=== PATIENT | female | born 2000 | race African-American/Black ===

== ENCOUNTER 2018-03-06 08:28 | Day surgery (SDC) | payer OTHER ==
[2018-03-05 13:37] VITALS: BMI 48.4
[2018-03-06] MEDS ORDERED: Fentanyl 100 MCG/2 ML VIAL ONE (09:37)
--- NOTE | 2018-03-06 12:31 | OP ---
DATE OF PROCEDURE: 03/06/2018 PROCEDURES: Esophagogastroduodenoscopy (diagnostic), colonoscopy with biopsy. INDICATION FOR PROCEDURE: Periumbilical abdominal pain, chronic diarrhea. DESCRIPTION OF PROCEDURE: After the risks and benefits of the procedure were explained to the patien t including risks of bleeding, infection, perforation, reactions to anesthesia, aspiration and/or jarrett n, informed consent was obtained. The patient was then taken to the endoscopy suite where deep sedat ion was administered via propofol and anesthesia support. Once adequate sedation was achieved, the s tandard gastroscope was introduced into the mouth with intubation of the esophagus, stomach and the p roximal small intestine with the findings listed below. The patient tolerated this portion of the pr ocedure well with no immediate perioperative complications. After completion of this phase of the pr ocedures, all equipment was removed and the patient's bed was rotated 180 degrees in preparation for the colonoscopy. Once in adequate position, a digital rectal examination was performed. After compl etion of this, the standard colonoscope was introduced into the rectum and advanced to the terminal i leum with no difficulty. The quality of the prep was excellent. The patient tolerated the procedure well with no immediate perioperative complications. EGD FINDINGS: ESOPHAGUS: Normal appearing mucosa was seen in the proximal, mid and distal esophagus. There was no evidence of erosions, ulcerations, mass lesions or active/recent bleeding. STOMACH: Normal appearing mucosa was seen in the gastric cardia, fundus, body, antrum, greater curva ture and incisura. There was no evidence of erosions, ulcerations, mass lesions, active/recent bleed ing. DUODENUM: Normal appearing mucosa was seen in both the duodenal bulb and second portion of the duode num. There was no evidence of erosions, ulcerations, mass lesions or active/recent bleeding. IMPRESSION: 1. Normal upper endoscopy. 2. Etiology for her abdominal pain was not seen during this examination. COLONOSCOPY FINDINGS: DIGITAL RECTAL EXAM: Normal. FINDINGS: Normal appearing mucosa was seen in the terminal ileum up to 15-20 cm past the ileocecal v alve. There was no evidence of erosions, ulcerations, or mucosal erythema in this region. Normal ap pearing mucosa was also seen at the ileocecal valve and appendiceal orifice. Normal appearing mucosa was also seen in the cecum, ascending, transverse, descending, sigmoid colon and rectum. Random bio psies were taken from the ascending, transverse, descending and sigmoid colons and placed in specimen jar for evaluation. Normal findings were seen on rectal retroflexion. IMPRESSION: 1. Normal colonoscopy including terminal ileoscopy. 2. No etiology for her abdominal pain or diarrhea seen during this examination. RECOMMENDATIONS: 1. We will follow up on the biopsy results for probable source of the patient's diarrhea. 2. Would recommend continuation of the higher fiber/FODMAP diet. 3. Follow up in the [facility] Clinic in 3 weeks for continued evaluation of abdominal pain and chronic diar denise.
[2018-03-06] MEDS ORDERED: PROPOFOL 200 MG/20 ML VIAL ONE (14:11)
[2018-03-06] MEDS ORDERED: Lidocaine 1% PF 5 ML VIAL ONE (14:11)
== END 2018-03-06 11:00 | disposition home or self-care (01) ==
LOC: SDC 08:28
PROVIDERS: ATTEND Internal Medicine
PROC: 0DJ08ZZ Inspection of Upper Intestinal Tract, Via Natural or Artificial Opening Endoscopic (ICD-10-PCS; principal; 2018-03-06)
PROC: 0DBE8ZX Excision of Large Intestine, Via Natural or Artificial Opening Endoscopic, Diagnostic (ICD-10-PCS; principal; 2018-03-06)
DX: K52.9 Noninfective gastroenteritis and colitis, unspecified (principal); K21.9 Gastro-esophageal reflux disease without esophagitis; J45.909 Unspecified asthma, uncomplicated; F41.9 Anxiety disorder, unspecified; Z88.2 Allergy status to sulfonamides; Z79.899 Other long term (current) drug therapy
CPT/HCPCS: 88305; J2001; J2704; J3010